=== PATIENT | male | born 1960 | race African-American/Black ===

== ENCOUNTER 2024-09-20 11:55 | Emergency (ER) | payer BC, MEDICAID ==
[~2024-09-20] VITALS: Ht 172.7 cm; Wt 82.0 kg
[~2024-09-20 11:55] MED LIST: ASPI-1497 PO; ATOR10TA69 PO; METF-416 PO; OMEP20TA23 PO
[2024-09-20 12:14] VITALS: O2SAT 98
[2024-09-20 15:45] LABS: BASOPHILS % 0.8 % (0.0-2.0); EOSINOPHILS % 3.0 % (0.0-5.0); HEMATOCRIT. 27.3 % (42.0-52.0); HEMOGLOBIN. 9.4 g/dL (14.0-18.0); LYMPHOCYTES % 21.7 % (20.0-50.0); MEAN PLATELET VOLUME 7.7 fl (7.4-10.4); MONOCYTES % 9.9 % (2.0-8.0); NEUTROPHILS % 64.6 % (40.0-76.0); PLATELET 265 x1000/uL (130-400); RED BLOOD CELL COUNT 3.09 mill/uL (4.7-6.1); RED CELL DISTRIBUTION WIDTH 14.6 % (11.6-14.6)
[2024-09-20 15:58] LABS: INR 1.0
[2024-09-20 16:05] LABS: CREATININE 0.8 mg/dL (0.6-1.3); UREA NITROGEN BLOOD 9 mg/dL (9-23)
[2024-09-20 16:07] LABS: ASPARTATE AMINOTRANSFERASE 13 IU/L (<34); BILIRUBIN DIRECT < 0.1 mg/dL (<=3.0); BILIRUBIN TOTAL 0.2 mg/dL (0.1-1.0); PROTEIN TOTAL 7.7 g/dL (6.0-8.3)
[2024-09-20] MEDS ORDERED: CEPH500C2 MT (16:11)
[2024-09-20 16:49] VITALS: BP 131/72; PULSE 77; RESP 14; TEMP 36.9; O2SAT 99
== END 2024-09-20 16:49 | disposition home or self-care (01) ==
LOC: ER 11:55
DX: M25.521 Pain in right elbow (principal); E11.9 Type 2 diabetes mellitus without complications; I10 Essential (primary) hypertension; Z79.82 Long term (current) use of aspirin; Z79.84 Long term (current) use of oral hypoglycemic drugs; Z79.899 Other long term (current) drug therapy; Z88.6 Allergy status to analgesic agent; Z96.649 Presence of unspecified artificial hip joint; Z96.659 Presence of unspecified artificial knee joint; Z98.890 Other specified postprocedural states
CPT/HCPCS: 99284; 80076; 80048; 83690; 85025; 85610; 36415; 73070; A6449